=== PATIENT | male | born 1945 | race Caucasian/White ===

== ENCOUNTER → 2018-12-14 | Day surgery (SDC) | payer OTHER, MEDICARE ==
--- NOTE | 2018-12-13 12:59 | Pre Op History & Physical ---
For cardiac catheterization with possible intervention. HISTORY: A 73-year-old gentleman who is known with coronary artery disease, status post [id number] myocardial infarction in 2016, status post PCI and stenting of the LAD, diabetes mellitus with end-organ damage, including chronic renal insufficiency, and proteinuria. Patient came to our office for an evaluation. His activities are limited at this current level of activity. Relatively, he does not have much chest pain. He does have shortness of breath on exertion, class 3. Regarding his renal insufficiency, he does have proteinuria and repeat urinary tract infection. He is followed by Dr. Tran of nephrology service. His creatinine is approximately at 2.7. He is considered for urology procedure. Patient is unable to void, and he uses self-catheterization. In preparation for that surgery, the patient had nuclear stress test, which was abnormal showing anteroseptal, as well as inferior defect. Patient will be presenting for cardiac catheterization with possible intervention. CURRENT MEDICATIONS 1. Aspirin 81 mg a day. 2. Effient which was stopped and placed the patient on Plavix 75 mg a day. 3. Atorvastatin 80 mg a day. 4. Metoprolol 25 mg daily. 5. Sertraline 100 mg a day. 6. Tradjenta 5 mg a day. 7. Oxybutynin. 8. Chloride 5 mg a day. 9. Flomax 0.4 mg a day. ALLERGIES: NONE. PAST MEDICAL HISTORY 1. Coronary artery disease, status post [id number] elevation myocardial infarction in October 2016. 2. Diabetes mellitus with end-organ damage. 3. Hyperlipidemia. 4. Arthritis. 5. Anxiety. 6. Prostate problems. Patient self-catheterizes every 4 hours. 7. Chronic renal insufficiency. 8. Resting tremor. 9. Cholecystectomy. 10. Left knee surgery. 11. Appendectomy. SOCIAL HISTORY: He is . He stopped smoking in 2016. Not an alcohol drinker. He is retired from [employer]. FAMILY HISTORY: Father of old age, although he had coronary artery bypass surgery at 55. Mother at the age of 75 with complications of hypertension and diabetes mellitus. His sister is a diabetic and hypertensive. REVIEW OF SYSTEMS GENERAL: Limited activity. HEENT: Unremarkable. as per acute illness. GI: No hematemesis. No melena. : Patient uses self-catheterization. MUSCULOSKELETAL: Back pain and left hip pain, stiffness and very limited activity. NEUROLOGICAL: Gait abnormality. Walks with a cane. PHYSICAL EXAMINATION VITALS: Height of 5 feet 10 inches, weight of 195 pounds, blood pressure 120/80, heart rate of 70, respiratory rate of 18. HEENT: Pupils are reactive. NECK: No elevation of jugular venous pulsation. CHEST: Clear to auscultation and percussion. HEART: PMI in the 5th intercostal space. Normal 1st and 2nd heart sounds. ABDOMEN: Soft. EXTREMITIES: No cyanosis. No clubbing. No edema. NEUROLOGICAL: Abnormal gait, uses a cane. IMPRESSION AND PLAN 1. Coronary artery disease with angina: Known to have [id number] elevation myocardial infarction in October 2016, treated with percutaneous coronary intervention and stenting using 3.5 x 20 Promus stent and 4.5-mm balloon. 2. Diabetes mellitus. 3. Mixed hyperlipidemia. 4. Chronic renal insufficiency and albuminuria. 5. Severe urological problems and need for surgery. Patient will be presenting for cardiac catheterization with possible intervention. His Effient was changed to Plavix. He needs to have IV hydration prior to the procedure. I explained to the patient unless there is a critical lesion probably will not do stent, and/or if we need to do a stent maybe will use nondrug stent so the patient can have his urological procedure very shortly because of the cumbersome contributing to his renal insufficiency. Questions are answered and discussed. The patient understands his risks, including , myocardial infarction, renal insufficiency, need for dialysis, etc. Job#: [id number]
[2018-12-13 18:36] LABS: BASOPHILS # (AUTO) 0.1 (0.0-0.1); BASOPHILS % 0.7 % (0.0-1.0); EOSINOPHILS # (AUTO) 0.4 (0.0-0.4); EOSINOPHILS % 6.4 % (0.0-6.0); HEMATOCRIT 37.8 % (38.2-49.6); HEMOGLOBIN 12.3 g/dL (14.0-18.0); LYMPHOCYTES # (AUTO) 2.3 (1.0-3.2); LYMPHOCYTES % 34.4 % (18.0-39.1); MEAN CORPUSCULAR HEMOGLOBIN 28.1 pg (28-32); MEAN CORPUSCULAR HGB CONC 32.5 g/dL (31-35); MEAN CORPUSCULAR VOLUME 86.5 fL (81-99); MONOCYTES # (AUTO) 0.5 (0.2-0.8); MONOCYTES % 7.6 % (4.4-11.3); NEUTROPHILS # (AUTO) 3.3 (2.1-6.9); NEUTROPHILS % 49.7 % (38.7-80.0); PLATELET COUNT 173 x10e3/uL (140-360); RED BLOOD COUNT 4.37 x10e6/uL (4.3-5.7); RED CELL DISTRIBUTION WIDTH 15.4 % (11.7-14.4)
[2018-12-13 18:55] LABS: ALBUMIN 3.9 g/dL (3.5-5.0); ALBUMIN/GLOBULIN RATIO 1.1 (0.8-2.0); ANION GAP 14.3 mmol/L (8-16); CREATININE, SERUM 1.37 mg/dL (0.72-1.25); POTASSIUM 4.3 mmol/L (3.5-5.1)
[~2018-12-14] VITALS: Ht 180.3 cm; Wt 88.5 kg
[2018-12-14] VITALS (16 sets, daily range): BP systolic 106–134; BP diastolic 59–88
[~2018-12-14] MED LIST: ASPIRIN EC81 MG PO; CLOPIDOGREL75 MG PO; EFFIENT10 MG PO; FARXIGA PO; FENTANYL CITRATE/PF 100MCG/2 ML INJ ONE; HEPARIN SOD/SOD CHLORIDE 2,000 ML ONE; INSULIN GLARGINE SC; IOPAMIDOL 370 MG/ML 200 ML INFUS..BTL INJ ONE; JANUMET XR 50-1 EAC1 PO; JANUVIA100 MG PO; LIDOCAINE HCL 2% LOCAL 20 ML VIAL ONE; LIPITOR20 MG PO; MIDAZOLAM HCL 2 MG/2 ML VIAL ONE; OXYBUTYNIN CHLOR5 MG PO; PEPCID20 MG PO; SERTRALINE HCL50 MG PO; SODIUM CHLORIDE 0.9% 1000ML 1,000 ML ONE; TAMSULOSIN HCL0.4 MG PO; TOPROL XL25 MG PO; TRADJENTA5 MG PO; VITAMIN D1000 UNI1 PO; VITAMIN E400 UNI1 PO; Z.0.BUSPIRONE HCL10 PO; Z.0.DIOVAN160 MG PO; Z.0.LIPITOR10 MG PO; Z.2.METFORMIN HCL500 PO
--- OUTSIDE RECORDS SUMMARY | 2018-12-14 06:54 | XMS REPORT ---
Author Author [facility] Address Unknown Phone Unavailable Care Team Providers Care Desulfurizer Machine Name Role Phone Unavailable Unavailable Payers Payer Name Policy Type Policy Number Effective Date Expiration Date Problems This patient has no known problems. Allergies, Adverse Reactions, Alerts Allergy Name Allergy Type Status Severity Reaction(s) Onset Date Inactive Date Treating Clinician Comments No Known Intolerances DA Active U 2009-05-08 00:00:00 No Known Contrast Allergies DA Active U 2009-03-11 00:00:00 No Known Drug Allergies DA Active U 2009-03-11 00:00:00 No Known Food Allergies DA Active U 2009-03-11 00:00:00 No Known Other Allergies DA Active U 2009-03-11 00:00:00 Medications This patient has no known medications.
--- OUTSIDE RECORDS SUMMARY | 2018-12-14 06:54 | XMS REPORT | Clinical Summary ---
Author Author [facility] Organization [facility] Address Unknown Phone Unavailable Care Team Providers Care Meter Inspector Name Role Phone Nikole Morse MD PCP Unavailable Allergies No Known Allergies Medications End Date Status Medication Sig Dispensed Refills Start Date Active tamsulosin (FLOMAX) 0.4 Take 1 30 capsule 6 09/02/201 mg capsule capsule (0.4 8 mg total) by mouth daily. Active oxybutynin (DITROPAN) 5 oxybutynin 0 09/03/201 MG tablet chloride 5 mg 8 tablet Take 1 tablet twice a day by oral route. Active metoprolol succinate XL daily. 0 (TOPROL-XL) 25 mg 24 hr tablet Active fluticasone (FLONASE) 50 fluticasone 0 mcg/actuation nasal spray 50 mcg/actuation nasal spray,suspens ion 2 spray(s) in each nostril daily Active albuterol (ACCUNEB) 2.5 3 mL. 0 mg /3 mL (0.083 %) nebulizer solution Active albuterol (PROAIR ProAir HFA 90 0 HFA,PROVENTIL mcg/actuation HFA,VENTOLIN HFA) 90 aerosol mcg/actuation inhaler inhaler Inhale 2 puffs every 4-6 hours by inhalation route. Active atorvastatin (LIPITOR) 20 atorvastatin 0 MG tablet 20 mg tablet Active aspirin (ASPIR-81) 81 MG Aspir-81 0 enteric coated tablet 1 daily Active testosterone cypionate 1 mL every 14 0 (DEPOTESTOTERONE (fourteen) CYPIONATE) 200 mg/mL days. injection Active linagliptin (TRADJENTA) 5 Tradjenta 5 0 mg tablet mg tablet Active sertraline (ZOLOFT) 100 daily. 0 MG tablet Active insulin GLARGINE Basaglar 0 (BASAGLAR KWIKPEN U-100 KwikPen U-100 INSULIN) 100 unit/mL Insulin 100 injection (pen) unit/mL (3 mL) subcutaneous Active midodrine (PROAMATINE) midodrine 2.5 0 2.5 MG tablet mg tablet Active prasugrel (EFFIENT) 10 mg prasugrel 10 0 tablet mg tablet Active valsartan (DIOVAN) 80 MG daily. 0 tablet 10/04/2018 Discontinued methylPREDNISolone TK UTD 0 (MEDROL DOSEPAK) 4 mg 8 tablet 10/04/2018 Discontinued valsartan (DIOVAN) 160 MG valsartan 160 0 tablet mg tablet Take 1 tablet every day by oral route for 30 days. 10/04/2018 Discontinued HYDROcodone-acetaminophen every 4 0 (NORCO) 5-325 mg per (four) hours. tablet 10/04/2018 Discontinued gabapentin (NEURONTIN) daily. 0 300 mg capsule 10/04/2018 Discontinued clonAZEPAM (KlonoPIN) 0.5 clonazepam 0 MG tablet 0.5 mg tablet Take 1 tablet every 6 hours by oral route. 10/04/2018 Discontinued pregabalin (LYRICA) 75 MG Lyrica 75 mg 0 capsule capsule 11/03/2018 midodrine (PROAMATINE) Take 1 tablet 90 tablet 0 2.5 MG tablet (2.5 mg 8 total) by mouth 3 (three) times a day for 30 days. 11/03/2018 valsartan (DIOVAN) 80 MG Take 1 tablet 30 tablet 0 tablet (80 mg total) 8 by mouth daily for 30 days. 11/03/2018 insulin GLARGINE (LANTUS) Inject 20 6 mL 0 100 unit/mL injection Units under 8 (vial) the skin nightly for 30 days. 11/03/2018 insulin lispro (HumaLOG) Inject 7 10 mL 12 100 unit/mL injection Units under 8 the skin 3 (three) times a day with meals for 30 days. 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 Encounters Care Team Description Date Type Specialty Thuan Tran MD 12/01/2018 Telephone Urology Thuan Tran MD Incomplete bladder emptying (Primary Dx); BPH with urinary obstruction; Hydronephrosis, unspecified hydronephrosis type; Retention of urine 11/10/2018 Office Visit Urology Eliana Emanuel MD Urinary retention (Primary Dx) 10/19/2018 Procedure visit Urology Gavi Ashby LVN 10/18/2018 Telephone Thuan Bryant MD 10/18/2018 Telephone Thuan Bryant MD 10/13/2018 Telephone UrologThuan Newsome MD ESOPHAGOGASTRODUODENOSCOPY (EGD) 10/01/2018 Surgery Gastroenterology Berna Evangelista MD Acute kidney injury superimposed on chronic kidney disease (HCC) (Primary Dx); Volume depletion; Neurogenic bladder; Incomplete bladder emptying; BPH with urinary obstruction; Hydronephrosis, unspecified hydronephrosis type 09/29/2018 [facility] General Internal Medicine - Encounter 10/04/2018 Thuan Tran MD Hydronephrosis, unspecified hydronephrosis type (Primary Dx); BPH with urinary obstruction; Incomplete bladder emptying 09/28/2018 Office Visit Thuan Bryant MD 09/28/2018 Telephone Thuan Bryant MD 09/16/2018 Telephone Thuan Bryant MD 09/16/2018 Telephone UrologThuan Roca MD Incomplete bladder emptying; BPH with urinary obstruction 09/15/2018 Hospital Radiology Encounter Thuan Tran MD Procedure and treatment not carried out due to patient leaving prior to being seen by health care provider (Primary Dx) 09/15/2018 Office Visit UrologThuan oRca MD Gross hematuria (Primary Dx); Incomplete bladder emptying; BPH with urinary obstruction 09/02/2018 Office Visit Thuan Bryant MD 08/26/2018 Telephone Urology oli 12/13/2017 Family History Medical History Relation Name Comments Cancer Father Diabetes Mother Relation Name Status Comments Father Mother Social History Date Tobacco Use Types Packs/Day Years Used Current Some Day Smoker Cigars Smokeless Tobacco: Never Used Alcohol Use Drinks/Week oz/Week Comments No Alcohol Habits Answer Date Recorded How often do you have a drink containing alcohol? Never 09/15/2018 How many drinks containing alcohol do you have on Not asked a typical day when you are drinking? How often do you have six or more drinks on one Not asked occasion? Sex Assigned at Date Recorded Not on file Industry Job Start Date Occupation Not on file Not on file Not on file Travel End Travel History Travel Start No recent travel history available. Last Filed Vital Signs Time Taken Vital Sign Reading 10/04/2018 11:55 AM [facility] Blood Pressure 126/73 10/04/2018 12:23 PM [facility] Pulse 109 10/04/2018 11:50 AM [facility] Temperature 37.2 C (99 F) 10/04/2018 12:23 PM [facility] Respiratory Rate 16 10/04/2018 12:35 PM [facility] Oxygen Saturation 99% - Inhaled Oxygen - Concentration 09/30/2018 1:45 PM [facility] Weight 78.9 kg (174 lb) - Height - - Body Mass Index - Plan of Treatment Health Maintenance Due Date Last Done Comments COLON CANCER SCREENING 1997 SHINGLES VACCINES (1 of 1997 2) PNEUMOCOCCAL 2012 POLYSACCHARIDE VACCINE AGE 65 AND OVER PNEUMOCOCCAL-13 2012 INFLUENZA VACCINE 06/02/2018 08/24/2017, 08/02/2016, 08/11/2014 Procedures Comments Procedure Name Priority Date/Time Associated Diagnosis LABORIE URODYNAMICS Routine 10/19/2018 Urinary retention 11:03 AM [facility] POC URINALYSIS DIPSTICK Routine 10/19/2018 Urinary retention 10:47 AM [facility] POC GLUCOSE Routine 10/04/2018 11:58 AM [facility] POC GLUCOSE Routine 10/04/2018 5:50 AM [facility] POC GLUCOSE Routine 10/03/2018 8:30 PM [facility] POC GLUCOSE Routine 10/03/2018 5:15 PM [facility] MRI BRAIN W WO CONTRAST Routine 10/03/2018 4:25 PM [facility] POC GLUCOSE Routine 10/03/2018 10:35 AM [facility]ER POC GLUCOSE Routine 10/03/2018 5:30 AM [facility] ESTIMATED GFR Routine 10/03/2018 4:40 AM [facility]I [facility]ICER BASIC METABOLIC PANEL Routine 10/03/2018 4:40 AM [facility]I [facility]ER SEROTONIN LEVEL, SERUM Routine 10/03/2018 4:40 AM [facility]I [facility]ER METANEPHRINES, PLASMA Routine 10/03/2018 (FREE) 4:40 AM [facility] CATECHOLAMINES Routine 10/03/2018 FRACTIONATED, PLASMA 4:40 AM [facility] ADRENOCORTICOTROPIC Routine 10/03/2018 HORMONE 4:40 AM [facility] THYROID STIMULATING Routine 10/03/2018 HORMONE 4:40 AM [facility]I [facility]ER PROLACTIN LEVEL Routine 10/03/2018 4:40 AM [facility] POC GLUCOSE Routine 10/02/2018 7:45 PM [facility]ER POC GLUCOSE Routine 10/02/2018 5:10 PM [facility]ER POC GLUCOSE Routine 10/02/2018 12:22 PM [facility]I [facility] POC GLUCOSE Routine 10/02/2018 5:31 AM [facility]I [facility] ESTIMATED GFR Routine 10/02/2018 5:02 AM [facility]I [facility]ICER BASIC METABOLIC PANEL Routine 10/02/2018 5:02 AM [facility] HC COMPLETE BLD COUNT Routine 10/02/2018 W/AUTO DIFF 5:02 AM [facility] POC GLUCOSE Routine 10/01/2018 8:19 PM [facility] POC GLUCOSE Routine 10/01/2018 4:30 PM [facility] POC GLUCOSE Routine 10/01/2018 12:05 PM [facility] POC GLUCOSE Routine 10/01/2018 5:56 AM [facility] ESTIMATED GFR Routine 10/01/2018 3:05 AM [facility]ER LACTIC ACID LEVEL, SEPSIS Timed 10/01/2018 - NOW AND REPEAT 2X EVERY 3:05 AM [facility]ER 3 HOURS BASIC METABOLIC PANEL Routine 10/01/2018 3:05 AM [facility]ER LACTIC ACID LEVEL, SEPSIS Timed 09/30/2018 - NOW AND REPEAT 2X EVERY 11:50 PM [facility]ER 3 HOURS POC GLUCOSE Routine 09/30/2018 8:33 PM [facility]ER LACTIC ACID LEVEL, SEPSIS Timed 09/30/2018 - NOW AND REPEAT 2X EVERY 8:14 PM [facility] [address] RENAL STONE PROTOCOL Routine 09/30/2018 7:08 PM [facility] POC GLUCOSE Routine 09/30/2018 4:40 PM [facility] ESTIMATED GFR Timed 09/30/2018 1:20 PM [facility] BASIC METABOLIC PANEL Timed 09/30/2018 1:20 PM [facility] POC GLUCOSE Routine 09/30/2018 12:16 PM [facility] POC GLUCOSE Routine 09/30/2018 11:10 AM [facility] POC GLUCOSE Routine 09/30/2018 5:48 AM [facility] STREPTOCOCCUS PNEUMONIAE Routine 09/29/2018 URINARY ANTIGEN 10:03 PM [facility] LEGIONELLA URINARY Routine 09/29/2018 ANTIGEN 10:03 PM [facility] URINALYSIS, AUTOMATED Routine 09/29/2018 WITH MICROSCOPY 9:55 PM [facility] XR CHEST 2 VW Routine 09/29/2018 9:05 PM [facility] BLOOD CULTURE, AEROBIC & Routine 09/29/2018 ANAEROBIC 7:10 PM [facility] HEMOGLOBIN A1C Routine 09/29/2018 7:00 PM [facility] ESTIMATED GFR Routine 09/29/2018 7:00 PM [facility] THYROID STIMULATING Routine 09/29/2018 HORMONE 7:00 PM [facility] MAGNESIUM LEVEL Routine 09/29/2018 7:00 PM [facility] LIPID PANEL Routine 09/29/2018 7:00 PM [facility] LACTIC ACID LEVEL Routine 09/29/2018 7:00 PM [facility] COMPREHENSIVE METABOLIC Routine 09/29/2018 PANEL 7:00 PM [facility] CREATINE KINASE, TOTAL Routine 09/29/2018 (CPK) 7:00 PM [facility] B NATRIURETIC PEPTIDE Routine 09/29/2018 7:00 PM [facility] PROTHROMBIN TIME WITH INR Routine 09/29/2018 7:00 PM [facility] HC COMPLETE BLD COUNT Routine 09/29/2018 W/AUTO DIFF 7:00 PM [facility] BLOOD CULTURE, AEROBIC & Routine 09/29/2018 ANAEROBIC 7:00 PM [facility] US RENAL Routine 09/15/2018 Incomplete bladder 5:19 PM [facility]ER emptying BPH with urinary obstruction after 12/13/2017 Results * [facility] Urodynamics (10/19/2018 11:03 AM DELI SLICER) Narrative Performed At * POC urinalysis dipstick (10/19/2018 10:47 AM DELI SLICER) Color urine, POC Yellow Clarity urine, POC Clear Glucose urine, POC Negative Negative Bilirubin urine, POC Negative Negative Ketones urine, POC Negative Negative Specific gravity urine, 1.020 1.005 - 1.030 POC Blood urine, POC Trace (A) Negative pH urine, POC 6.0 5.0, 5.5, 6.0, 6.5, 7.0, 7.5, 8.0, 8.5 Protein urine, POC Negative Negative Urobilinogen urine, POC <2.0 <2.0 Nitrite urine, POC Negative Negative Leukocyte esterase urine, Negative Negative POC Specimen Urine * POC glucose (10/04/2018 11:58 AM DELI [facility]ICER) Only the most recent of 19 results within the time period is included. POC glucose 173 (H) 65 - 99 mg/dL [facility] Comment: [facility] Meter ID: [id number] Contact Center Engineer: Jae Belcher Performing Organization Address City/State/Zipcode Phone [place] [address] [place] [address] PATHOLOGY AND GENOMIC MEDICINE [facility] [address] [address] [facility] * MRI Brain W Wo Contrast (10/03/2018 4:25 PM DELI SLICER) Narrative Performed At EXAMINATION: [facility] WO [facility] CLINICAL HISTORY: weakness COMPARISON:None TECHNIQUE: Multiplanar and multisequence MRI imaging of the brain was obtained with and without contrast. FINDINGS: There is no evidence of acute infarct, intracranial hemorrhage or mass, hydrocephalus or midline shift. Motion artifact obscures some details. There are mild nonspecific white matter changes. There is fluid and mucosal thickening with opacification of portions of the sinuses most prominent involving the maxillary sinuses. There are no areas of abnormal enhancement in the brain or extra axial region in the areas not obscured by artifacts. IMPRESSION: No acute findings in the brain. Sinusitis. [facility]-[id number] Procedure Note Interface, Radiology Results Incoming - 10/03/2018 4:32 PM DELI [facility]ICER EXAMINATION: MRI BRAIN W WO CONTRAST CLINICAL HISTORY: weakness COMPARISON: None TECHNIQUE: Multiplanar and multisequence MRI imaging of the brain was obtained with and without contrast. FINDINGS: There is no evidence of acute infarct, intracranial hemorrhage or mass, hydrocephalus or midline shift. Motion artifact obscures some details. There are mild nonspecific white matter changes. There is fluid and mucosal thickening with opacification of portions of the sinuses most prominent involving the maxillary sinuses. There are no areas of abnormal enhancement in the brain or extra axial region in the areas not obscured by artifacts. IMPRESSION: No acute findings in the brain. Sinusitis. [facility]-[id number] Performing Organization Address City/State/Zipcode Phone Number [facility] [address] [place] [address] * Estimated GFR (10/03/2018 4:40 AM DELI SLICER) Only the most recent of 5 results within the time period is included. Estimated GFR 50 (A) mL/min/1.73 m2 [facility] Comment: [facility] CatergoryUnitsInte rpretation G1 >=90 Normal or high G2 60-89Mildly decreased [id number] Mildly to moderately decreased [id number] Moderately to severely decreased G4 15-29Severely decreased G5 <15Kidney failure The eGFR was calculated using the Chronic Kidney Disease Epidemiology Collaboration (CKD-EPI) equation. Interpretation is based on recommendations of the National Kidney Foundation-Kidney Disease Outcomes Quality Initiative (NKF-KDOQI) published in 2014. Specimen Plasma specimen Performing Organization Address City/[facility]/Zipcode Phone [place] [address] [place] [address] PATHOLOGY AND GENOMIC MEDICINE [facility] [address] [place] [address] [facility] * Metanephrines, plasma (free) (10/03/2018 4:40 AM DELI SLICER) Metanephrine <0.10 0.00 - 0.49 nmol/L [facility] Normetanephrine 0.22 0.00 - 0.89 nmol/L [facility] Comment: HOSPITAL This test was developed and its performance characteristics determined by the Department of Pathology and Genomic Medicine, [facility]. Plasma free metanephrines are tested by LC-MS/MS. It has not beencleared or approved by FDA. The laboratory is regulated under CLIA as qualified to perform high-complexity testing. This test is used for clinical purposes. It should not be regarded as investigational or for research. Specimen Blood Performing Organization Address City/[facility]/Zipcode Phone Number [facility] DEPARTMENT OF [address] [place] [address] PATHOLOGY AND GENOMIC MEDICINE [facility] [address] [place] [address] * Catecholamines fractionated, plasma (10/03/2018 4:40 AM DELI SLICER) Dopamine <20 0 - 20 pg/mL [facility] Epinephrine 11 10 - 200 pg/mL [facility] Norepinephrine 162 80 - 520 pg/mL [facility] Catecholamines fract, See Note [facility] plasma Comment: INTERPRETIVE INFORMATION: Catecholamines Panel, Plasma Small increases in catecholamines (less than 2 times the upper reference limit) usually are the result of physiological stimuli, drugs, or improper specimen collection. Significant elevation of one or morecatecholamines (2 or more times the upper reference limit) is associated with an increased probability of a neuroendocrine tumor. Measurement of plasma or urine fractionated metanephrines provides better diagnosticsensitivity than measurement of catecholamines. Higher catecholamine concentrations are observed in specimens collected from upright or standing adults.Epinephrine may be increased by approximately 20 percent; norepinephrine up to 700 pg/mL; dopamine, unchanged. Performed by [facility], [address] [place] [address] [email or web address], David Still MD - Lab. Director Specimen Plasma specimen Performing Organization Address City/[facility]/Zipcode Phone Number [facility] [address] [place] [address] [facility] [address] [place] [address] * Prolactin level (10/03/2018 4:40 AM DELI SLICER) Prolactin 10 4 - 15 ng/mL [facility] Specimen Plasma specimen Performing Organization Address City/[facility] Phone Number [facility] [place] [address] PATHOLOGY AND [facility] MEDICINE [address] * Adrenocorticotropic hormone (10/03/2018 4:40 AM DELI SLICER) Adrenocorticotropic 28.9 7.2 - 63.3 pg/mL [facility] Specimen Blood Performing Organization Address City/[facility] Phone Number [facility] [place] [address] PATHOLOGY AND GENOMIC MEDICINE [address] * Thyroid stimulating hormone (10/03/2018 4:40 AM DELI [facility]ICER) Only the most recent of 2 results within the time period is included. TSH 1.12 0.27 - 4.20 uIU/mL [facility] Specimen Plasma specimen Performing Organization Address [facility] Cent[facility]ode Phone Number [facility] DE[facility]MENT [address] [place] [address] PATHOLOGY AND GENOMIC MEDICINE [address] * Serotonin level, serum (10/03/2018 4:40 AM DELI SLICER) Serotonin, serum <10 (L) 50 - 220 ng/mL [facility] Comment: TEST INFORMATION: Serotonin, Serum Test developed and characteristics determined by [facility]. See Compliance Statement B: [facility]/ Performed by [facility], [address] [place] [address] [email or web address], David Still MD - Lab. Director Specimen Serum Performing Organization Address City/[facility]/Zipcode Phone Number [facility] [address] [place] [address] [facility] [address] [place] [address] * Basic metabolic panel (10/03/2018 4:40 AM DELI [facility]ICER) Only the most recent of 4 results within the time period is included. Sodium 139 135 - 148 mEq/L [facility] Potassium 4.5 3.5 - 5.0 mEq/L [facility] Chloride 104 98 - 112 mEq/L [facility] CO2 26 24 - 31 mEq/L [facility] Anion gap 9@ANIO 7 - 15 mEq/L [facility] BUN 25 (H) 8 - 23 mg/dL [facility] Creatinine 1.40 (H) 0.70 - 1.20 mg/dL [facility] Glucose 124 (H) 65 - 99 mg/dL [facility] Calcium 9.0 8.8 - 10.2 mg/dL [facility] Specimen Plasma specimen Performing Organization Address City/[facility]/Zipcode Phone Number [facility] [place] [address] [place] [address] [place] [address] PATHOLOGY AND GENOMIC MEDICINE [facility] [address] * CBC with platelet and differential (10/02/2018 5:02 AM DELI SLICER) Only the most recent of 2 results within the time period is included. WBC 11.26 (H) 4.50 - 11.00 k/uL [facility] RBC 4.12 (L) 4.40 - 6.00 m/uL [facility] HGB 11.4 (L) 14.0 - 18.0 g/dL [facility] HCT 35.3 (L) 41.0 - 51.0 % [facility] MCV 85.7 82.0 - 100.0 fL [facility] MCH 27.7 27.0 - 34.0 pg [facility] MCHC 32.3 31.0 - 37.0 g/dL [facility] RDW - SD 43.5 37.0 - 55.0 fL [facility] MPV 10.5 8.8 - 13.2 fL [facility] Platelet count 202 150 - 400 k/uL [facility] Nucleated RBC 0.00 /100 WBC [facility] Neutrophils 68.9 39.0 - 69.0 % [facility] Lymphocytes 17.1 (L) 25.0 - 45.0 % [facility] Monocytes 7.9 0.0 - 10.0 % [facility] Eosinophils 2.8 0.0 - 5.0 % [facility] Basophils 0.5 0.0 - 1.0 % [facility] Specimen Blood Performing Organization Address [facility] Phone Number [address] [place] [address] PATHOLOGY AND GENOMIC MEDICINE [address] * Lactic acid level, SEPSIS - Now and repeat 2x every 3 hours (10/01/2018 3:05 AM DELI SLICER) Only the most recent of 3 results within the time period is included. Lactic acid 1.6 0.5 - 2.2 mmol/L [facility] Specimen Plasma specimen Performing Organization Address [facility] Phone Number [address] [place] [address] PATHOLOGY AND GENOMIC MEDICINE [address] * CT Renal Stone Protocol (09/30/2018 7:08 PM DELI SLICER) Narrative Performed At EXAMINATION:CT RENAL STONE PROTOCOL RADIANT CLINICAL HISTORY:73 years Male Flank painstone disease suspected, Urinary tract stoneknownsymptomaticcomplications or risk factors TECHNIQUE:Multiple axial images of the abdomen and pelvis were obtained without intravenous administration of iodinated contrast. Sagittal and coronal computerized reformatted images were also obtained. The lack of intravenous contrast reduces the sensitivity of detecting solid organ disease. CT imaging was performed with iterative reconstruction techniques and/or automated exposure control to reduce radiation dose. COMPARISON:None. There is extensive coronary artery calcification. There is mild subpleural reticular opacity at both lung bases greatest in the dependent lungs. There is a trace of pericardial fluid. The liver and spleen appear normal in size and homogeneous in texture. The adrenal glands appear unremarkable. The gallbladder has been removed. The pancreas appears unremarkable. The right kidney demonstrates a medial lower pole cyst measuring approximately 18 mm in diameter. No intrarenal calculi are identified. There is mild fullness of the right ureter however no obstructing calculus is identified. A catheter is present in the bladder and the bladder is decompressed. The left kidney contains numerous hypodense lesions probably related to cysts one in the mid posterior cortex measuring 3 cm another arising in the lower pole measuring 9.5 cm in maximum dimension the left renal pelvis also is mildly distended. The ureter is not dilated. No calculus within the ureter is identified although there are phleboliths noted in the pelvis roughly along the course of the ureters. The prostate is enlarged mildly. The bladder wall appears somewhat thickened although this may be spurious. There are no inflammatory changes identified involving bowel. The appendix is not well-visualized. There is moderate stool in the colon. IMPRESSION: 1. Numerous bilateral renal cysts not all of these are large enough to definitively characterize. The largest is on the left however measuring 9.5 cm in maximum dimension. There is probably also a small hemorrhagic cyst on the left measuring approximately 11 mm in the midportion of the kidney. 2. Fullness in the renal pelves bilaterally with no hydroureter on either side. No obstructing stones are identified. 3. Catheter present within the bladder thickening of the bladder wall. CT bone Windows demonstrate no lytic or blastic lesions. Degenerative changes of the spine are present with disc narrowing of bilateral pars defects at L5. A grade 1 spondylolisthesis of L5 on S1 is present. [id number] Procedure Note Hm Interface, Radiology Results Incoming - 09/30/2018 7:29 PM DELI SLICER EXAMINATION: CT RENAL STONE PROTOCOL CLINICAL HISTORY:73 years Male Flank pain stone disease suspected, Urinary tract stone known symptomatic complications or risk factors TECHNIQUE: Multiple axial images of the abdomen and pelvis were obtained without intravenous administration of iodinated contrast. Sagittal and coronal computerized reformatted images were also obtained. The lack of intravenous contrast reduces the sensitivity of detecting solid organ disease. CT imaging was performed with iterative reconstruction techniques and/or automated exposure control to reduce radiation dose. COMPARISON: None. There is extensive coronary artery calcification. There is mild subpleural reticular opacity at both lung bases greatest in the dependent lungs. There is a trace of pericardial fluid. The liver and spleen appear normal in size and homogeneous in texture. The adrenal glands appear unremarkable. The gallbladder has been removed. The pancreas appears unremarkable. The right kidney demonstrates a medial lower pole cyst measuring approximately 18 mm in diameter. No intrarenal calculi are identified. There is mild fullness of the right ureter however no obstructing calculus is identified. A catheter is present in the bladder and the bladder is decompressed. The left kidney contains numerous hypodense lesions probably related to cysts one in the mid posterior cortex measuring 3 cm another arising in the lower pole measuring 9.5 cm in maximum dimension the left renal pelvis also is mildly distended. The ureter is not dilated. No calculus within the ureter is identified although there are phleboliths noted in the pelvis roughly along the course of the ureters. The prostate is enlarged mildly. The bladder wall appears somewhat thickened although this may be spurious. There are no inflammatory changes identified involving bowel. The appendix is not well-visualized. There is moderate stool in the colon. IMPRESSION: 1. Numerous bilateral renal cysts not all of these are large enough to definitively characterize. The largest is on the left however measuring 9.5 cm in maximum dimension. There is probably also a small hemorrhagic cyst on the left measuring approximately 11 mm in the midportion of the kidney. 2. Fullness in the renal pelves bilaterally with no hydroureter on either side. No obstructing stones are identified. 3. Catheter present within the bladder thickening of the bladder wall. CT bone Windows demonstrate no lytic or blastic lesions. Degenerative changes of the spine are present with disc narrowing of bilateral pars defects at L5. A grade 1 spondylolisthesis of L5 on S1 is present. [id number] Performing Organization Address City/State/Zipcode Phone Number [facility] [address] [place] [address] * Streptococcus pneumoniae urinary antigen (09/29/2018 10:03 PM DELI SLICER) Strep pneumo urinary Ag Negative for Streptococcus [facility] pneumoniae antigen. [facility]OSPITAL Comment: Specimen Information Specimen Source: Urine Specimen Site: Other- Detailed Description Required Specimen Urine - Other- Detailed Description Required Performing Organization Address City/[facility]/Zipcode Phone Number [facility] OF [address] [place] [address] PATHOLOGY AND GENOMIC MEDICINE [place] [phone] * Legionella urinary antigen (09/29/2018 10:03 PM DELI SLICER) Legionella urinary Negative for Legionella [facility] antigen serogroup 1 antigen. HOSPITAL Comment: Specimen Information Specimen Source: Urine Specimen Site: Other- Detailed Description Required Specimen Urine - Other- Detailed Description Required Performing Organization Address City/[facility]/Zipcode Phone Number [facility] DEPARTMENT [address] [place] [address] * Urinalysis, automated with microscopy (09/29/2018 9:55 PM DELI SLICER) Color, UA Yellow [facility] Appearance, UA Slightly-Cloudy [facility] Specific gravity, UA 1.013 1.001 - 1.035 [facility] pH, UA 5.0 5.0 - 8.5 [facility] Protein, UA Negative Negative [facility] Glucose, UA 3+ (A) Negative [facility] Ketones, UA Negative Negative [facility] Bilirubin, UA Negative Negative [facility] Blood, UA Large (A) Negative [facility] Nitrite, UA Negative Negative [facility] Urobilinogen, UA Negative <2.0 [facility] Leukocyte esterase, UA Small (A) Negative [facility] WBC, UA 41-60 (H) 0 - 1 /HPF [facility] RBC, UA 0-5 0 - 5 /HPF [facility] Bacteria, UA Trace None seen [facility] Yeast, UA None seen [facility] Yeast with pseudohyphae, None seen [facility] Specimen Urine Performing Organization Address City/[facility]/Zipcode Phone Number [facility] DE[facility] [id number] [place] [address] [place] [id number] PATHOLOGY AND GENOMIC MEDICINE [address] [place], [place] [id number] [place] [address] * XR Chest 2 Vw (09/29/2018 9:05 PM DELI SLICER) Narrative Performed At EXAMINATION:XR CHEST 2 VW [facility] CLINICAL HISTORY:Shortness of breath COMPARISON:None. IMPRESSION: No acute cardiopulmonary disease. FINDINGS: The cardiomediastinal silhouette, lungs, and regional skeletal structures are within normal limits for age. Procedure Note Interface, Radiology Results Incoming - 09/29/2018 9:12 PM DELI SLICER EXAMINATION: XR CHEST 2 VW CLINICAL HISTORY: Shortness of breath COMPARISON: None. IMPRESSION: No acute cardiopulmonary disease. FINDINGS: The cardiomediastinal silhouette, lungs, and regional skeletal structures are within normal limits for age. Performing Organization Address [facility] Phone Number [facility] [address] [place] [address] * Blood culture, aerobic & anaerobic (09/29/2018 7:10 PM DELI SLICER) Only the most recent of 2 results within the time period is included. Blood culture isolate No growth after 5 days of [facility] incubation. HOSPITAL Comment: Specimen Information Specimen Source: Blood Specimen Site: right ac Specimen Blood Performing Organization Address [facility] [place]/[facility] Cent[facility] Phone Number [facility] DEPARTMENT OF [address] [place] [address] PATHOLOGY AND GENOMIC MEDICINE [address] * Prothrombin time with INR (09/29/2018 7:00 PM DELI SLICER) Prothrombin time 14.7 (H) 11.5 - 14.5 sec [facility] INR 1.2 [facility] Comment: [facility] The International Normalized Ratio (INR) is a therapeutic monitoring tool for patients who are stable on oral anticoagulant therapy. An INR of 2.0-3.0 is suggested for deep vein thrombosis/pulmonary embolism. Specimen Blood Performing Organization Address [facility] Phone Number [address] [place] [address] PATHOLOGY AND GENOMIC MEDICINE [address] * B natriuretic peptide (09/29/2018 7:00 PM DELI SLICER) BNP 15 0 - 100 pg/mL [facility] Specimen Blood Performing Organization Address [facility] [place] Phone Number [address] [place] [address] PATHOLOGY AND GENOMIC MEDICINE [address] * Magnesium level (09/29/2018 7:00 PM DELI SLICER) Magnesium 2.0 1.6 - 2.4 mg/dL [facility] Specimen Plasma specimen Performing Organization Address [facility] Phone Number [address] [place] [address] PATHOLOGY AND [facility] MEDICINE [address] * Lactic acid level (09/29/2018 7:00 PM DELI SLICER) Lactic acid 2.7 (H) 0.5 - 2.2 mmol/L [facility] Specimen Plasma specimen Performing Organization Address [facility] Phone Number [address] [place] [address] PATHOLOGY AND [facility] MEDICINE [address] * Hemoglobin A1c (09/29/2018 7:00 PM DELI SLICER) Hemoglobin A1C 12.2 (H) 4.0 - 6.0 % [facility] Comment: [facility] Less than 6% - Goal of therapy for Type II Diabetes Less than 7%-Goal of therapy for Type I Diabetes Less than 8%-Accepta ble control for Type I or Type II Diabetes Greater than 8%-Unacceptabl e control; action indicated. ([id number]) Specimen Blood Performing Organization Address [facility] Phone Number [address] [place] [address] PATHOLOGY AND GENOMIC MEDICINE [address] * Creatine kinase, total (CPK) (09/29/2018 7:00 PM DELI SLICER) Creatine kinase 347 (H) 39 - 308 U/L [facility] Specimen Plasma specimen Performing Organization Address [facility] Phone Number [address] [place] [address] PATHOLOGY AND GENOMIC MEDICINE [facility] [address] * Lipid panel (09/29/2018 7:00 PM DELI SLICER) Cholesterol 119 <200 mg/dL [facility] Triglycerides 183 (H) <150 mg/dL [facility] HDL cholesterol 24 (L) >40 mg/dL [facility] LDL cholesterol 68Comment: Result obtained by <100 mg/dL [facility] direct LDL measurement [facility] Lipid panel SeeBelow [facility] interpretation Comment: [facility] Total Cholesterol (mg/dL) <200 Desirable 200-239Borderline -high >=240High Triglycerides (mg/dL) <150 Normal 150-199Borderline -high 200-499High >=500Very high HDL Cholesterol (mg/dL) <40Low (male) <40Low (female) LDL Cholesterol (mg/dL) <100 Optimal 100-129Near or above optimal 130-159Borderline -high 160-189High >=190Very high Risk Catergories that modify LDL goals. Risk Catergories LDL goal (mg/dL) CHD and CHD risk equivalent<100 (10-year risk >20%) Multiple (2+) risk factors <130 (10-year risk=<20%) 0-1 risk factors <160 (<10-year risk) Defining levels of lipids in metabolic syndrome Triglycerides >=150 mg/dL HDL Cholesterol Men <40 mg/dL Women <40 mg/dL Non-HDL cholesterol is a second target for therapy in persons with high triglycerides (>=200 mg/dL) Specimen Plasma specimen Performing Organization Address City/State/Zipcode Phone Number [facility] [address] [place] [address] PATHOLOGY AND GENOMIC MEDICINE [facility] [address] * Comprehensive metabolic panel (09/29/2018 7:00 PM DELI SLICER) Sodium 132 (L) 135 - 148 mEq/L [facility] Potassium 5.2 (H) 3.5 - 5.0 mEq/L [facility] Chloride 94 (L) 98 - 112 mEq/L [facility] CO2 21 (L) 24 - 31 mEq/L [facility] Anion gap 17@ANIO (H) 7 - 15 mEq/L [facility] BUN 84 (H) 8 - 23 mg/dL [facility] Creatinine 2.40 (H) 0.70 - 1.20 mg/dL [facility] Glucose 581 (HH) 65 - 99 mg/dL [facility] Comment: [facility] Results called to and read back by GIDEON CRUZ RN09/29/201820 :06BY CV. Calcium 10.2 8.8 - 10.2 mg/dL [facility] Protein 8.6 (H) 6.3 - 8.3 g/dL [facility] Comment: [facility] [place] 4.6-7.0 g/dL 1 week 4.4-7.6 g/dL 7 months-1year 5.1-7.3 g/dL 1-2 years5.6-7 .5 g/dL >3 years6.0-8 .0 g/dL 18-150 6.3-8.3 g/dL Albumin 3.6 3.5 - 5.0 g/dL [facility] A/G ratio 0.7 0.7 - 3.8 [facility] Alkaline phosphatase 117 40 - 129 U/L [facility] AST 37 10 - 50 U/L [facility] ALT 43 5 - 50 U/L [facility] Total bilirubin 0.6 0.0 - 1.2 mg/dL [facility] Specimen Plasma specimen Performing Organization Address City/State/Zipcode Phone [place] [address] [place] [address] PATHOLOGY AND GENOMIC MEDICINE [facility] [id number] [place] [address] [place] [address] [facility] * US Renal (09/15/2018 5:19 PM DELI SLICER) Narrative Performed At EXAMINATION:US RENAL [facility] CLINICAL HISTORY:R33.9 Retention of urineunspecified, N40.1 Benign prostatic hyperplasia with lower urinary tract symptoms, incomplete bladder emptying COMPARISON:None. FINDINGS: Kidneys are normal in echogenicity bilaterally. The right kidney measures 13.3 cm X6.9 cmX6.5 cm. Cortex 1.9 cm. Moderate right-sided pelvic caliectasis. 1.6 cm cyst superiorly benign appearance. No solid renal lesions on the right The left kidney tnixpfta23.2 cmX7.2 cm X 7.8 cm. Cortex 1.6 cm. Moderate to severe hydronephrosis on the left. 9.3 cm benign appearing cortical cyst off the lower pole of the left kidney. Moderate distention of the urinary bladder. Enlarged prostate to 7.0 cm. Left-sided ureteral jet identified. Right-sided ureteral jet not seen IMPRESSION: Bilateral moderate hydronephrosis left somewhat greater than right Distention of the urinary bladder with enlarged prostate. No obvious obstructing calculi seen. Hydronephrosis on the basis of BPH may be present. Stone protocol CT examination may be helpful to exclude the possibility of obstructing calculi Bilateral renal cortical cysts, largest on the left at 9.1 cm. [id number] Procedure Note Hm Interface, Radiology Results Incoming - 09/15/2018 5:28 PM DELI SLICER EXAMINATION: US RENAL CLINICAL HISTORY: R33.9 Retention of urine unspecified, N40.1 Benign prostatic hyperplasia with lower urinary tract symptoms, incomplete bladder emptying COMPARISON: None. FINDINGS: Kidneys are normal in echogenicity bilaterally. The right kidney measures 13.3 cm X 6.9 cm X 6.5 cm. Cortex 1.9 cm. Moderate right-sided pelvic caliectasis. 1.6 cm cyst superiorly benign appearance. No solid renal lesions on the right The left kidney measures 14.2 cm X 7.2 cm X 7.8 cm. Cortex 1.6 cm. Moderate to severe hydronephrosis on the left. 9.3 cm benign appearing cortical cyst off the lower pole of the left kidney. Moderate distention of the urinary bladder. Enlarged prostate to 7.0 cm. Left-sided ureteral jet identified. Right-sided ureteral jet not seen IMPRESSION: Bilateral moderate hydronephrosis left somewhat greater than right Distention of the urinary bladder with enlarged prostate. No obvious obstructing calculi seen. Hydronephrosis on the basis of BPH may be present. Stone protocol CT examination may be helpful to exclude the possibility of obstructing calculi Bilateral renal cortical cysts, largest on the left at 9.1 cm. [id number] Performing Organization Address City/State/Zipcode Phone Number [facility] [address] [place] [address] after 12/13/2017 Insurance Payer Benefit Subscriber ID Type Phone Address Plan / Group HUMANA MEDICARE HUMANA xxxxxxxxx PPO MEDICARE PPO/PFFS/E RS [facility] Advance Directives Patient has advance care planning documents, and code status on file. For more i nformation, please contact: Joseph Mckeon [address] [place] [address] Date Inactivated Comments Code Status Date Activated 10/04/2018 7:01 PM Full Code 09/29/2018 6:30 PM Code Status decision reached by: Patient
--- NOTE | 2018-12-14 09:04 | NUR ---
0904am Received report Kimani [facility] DR Jb Kendrick dx major blockages no fix for probable surgery consult Md to speak with pt in office at 4pm tommorrow. Dr at bedside wants to wait on full review with pt in office. Copies of POC given to with Diagram and cdx2. (Confirmed with lab assistant RN ok to give to family. Back to baseline Orientation Resp shallow and regular Sat 100% on room air. Abdomen soft and non tender Denies necessity to defecate or urinate. Iv infusing at 100cchr via lt hand site healthy w/o s/s infiltration on pump and daughter at bedside. Refuses tray assisted with pudding and H20 tolerated well for dc at 1pm. Bilateral femoral pulses x4PP rt groin Steven patch intact w/o signs bleeding or hematoma. denies co CP or SOB monitor in Sinus bhupinder w/o ectopics
--- NOTE | 2018-12-14 10:21 | Operative Report ---
DATE OF PROCEDURE: December 14, 2018 OPERATION PERFORMED: Cardiac catheterization. INDICATIONS: Abnormal nuclear stress test. Dyspnea on exertion. Angina class III. Known with prior [id number] myocardial infarction. TECHNICAL DETAILS: After the usual sterile preparation and draping procedure, intravenous Versed and fentanyl given for sedation. Local Xylocaine for anesthesia. A 4-[place] Islander sheath established in place. Partha left 5 and 3DRC catheter engaged the coronaries. Pigtail for hemodynamic measurement and left ventriculogram. At the end of the procedure, sheath was removed. Hemostasis achieved manually. No complication and no blood loss. RESULTS 1. Coronary angiogram. 1. Left main free of disease. 2. LAD, there is ostial LAD stent. This jailing first diagonal with diagonal 95% lesion. Distal to the stent, there is 60% to 70% lesion and 80% mid LAD lesion. 3. Circumflex coronary artery giving large obtuse marginal with 30% to 40% stenosis. 4. Right coronary artery heavily calcified 95% mid RCA lesion. 5. Hemodynamics. Aorta pressure 130/80. LV pressure 130/20. 6. Left ventriculogram in the right artery oblique view showed normal size ventricle with an ejection fraction of 60% to 70%. IMPRESSIONS 1. Two-vessel coronary artery disease. Jailed 95% diagonal, approximately 60% to 70% lesion distal to the stent, 80% at the mid to distal left anterior descending to very, very heavily calcified all the way through right coronary artery, diffusely diseased 95% mid right coronary artery lesion encased in calcium. 2. Preserved left ventricular systolic function. COMPLICATIONS: None. BLOOD LOSS: None. RECOMMENDATIONS: Patient to discuss options in our office tomorrow. Regarding his coronary anatomy, the LAD is doable, the RCA is very high risk. It is a small artery and poor quality artery, diffusely diseased. Options between medical therapy and if intervention is entertained and needs to be atherectomy, with very high risk for complication. Job#: [id number] MALCOLM
--- NOTE | 2018-12-14 13:00 | NUR ---
1300pm Iv removed from hand site w/o s/s infiltration. 2x2 and coban dressing applied.Recovery completed with back to baseline orientation. Annabel score 10, Rass score 0 ), alert and calm. Dc home with Rt. Steven dressing dry and intact to rt femoral site. PPx4 present. Pt and have dc papers. Aware of importance for f/o care with Dr Barrow tomorrow at 4pm. Wheeled to car with [facility] RN escort. Has valuables and clothes and cane. Buckled to car seat Denies co chest pain or SOB Sinus Kei w/o ectopics.Vs stable. No distress.
== END | disposition home or self-care (01) ==
LOC: CATH LAB 06:40
PROVIDERS: ATTEND Internal Medicine Cardiovascular Disease
DX: I25.119 Atherosclerotic heart disease of native coronary artery with unspecified angina pectoris (principal); R94.39 Abnormal result of other cardiovascular function study; E11.22 Type 2 diabetes mellitus with diabetic chronic kidney disease; N18.3 Chronic kidney disease, stage 3 (moderate); I25.2 Old myocardial infarction; R06.09 Other forms of dyspnea; E78.2 Mixed hyperlipidemia; R25.1 Tremor, unspecified; M19.90 Unspecified osteoarthritis, unspecified site; R80.9 Proteinuria, unspecified; N39.9 Disorder of urinary system, unspecified; F41.9 Anxiety disorder, unspecified; Z01.812 Encounter for preprocedural laboratory examination; Z79.82 Long term (current) use of aspirin; Z79.4 Long term (current) use of insulin; Z79.02 Long term (current) use of antithrombotics/antiplatelets; Z95.5 Presence of coronary angioplasty implant and graft; Z87.891 Personal history of nicotine dependence; Z82.49 Family history of ischemic heart disease and other diseases of the circulatory system
CPT/HCPCS: 36415; 80053; 85025; 93458; C1766; J2001; J2250; J7030; Q9967

== ENCOUNTER → 2025-03-01 | Outpatient (RCR) | payer MEDICARE ==
[~2025-03-01] MED LIST changes: -FENTANYL CITRATE/PF 100MCG/2 ML INJ ONE; -HEPARIN SOD/SOD CHLORIDE 2,000 ML ONE; -IOPAMIDOL 370 MG/ML 200 ML INFUS..BTL INJ ONE; -LIDOCAINE HCL 2% LOCAL 20 ML VIAL ONE; -MIDAZOLAM HCL 2 MG/2 ML VIAL ONE; -SODIUM CHLORIDE 0.9% 1000ML 1,000 ML ONE
== END ==
LOC: PT 02-24 07:40
PROVIDERS: ATTEND Specialist
DX: G25.0 Essential tremor (principal)

== ENCOUNTER 2025-05-24 16:00 | Outpatient (RCR) | payer MEDICARE | END 2025-06-01 | LOC: PT 16:00 | PROVIDERS: ATTEND Specialist | DX: G25.0 Essential tremor (principal) ==